=== PATIENT | male | born 1955 ===

== ENCOUNTER 2020-12-04 07:00 | Outpatient (CLI) | payer OTHER | END 2020-12-04 07:15 | disposition home or self-care (01) | LOC: PPH VACUNA 07:00 | PROVIDERS: ATTEND Emergency Medicine Pediatric Emergency Medicine | DX: Z23 Encounter for immunization (principal) ==

== ENCOUNTER 2021-05-29 08:00 | Outpatient (CLI) | payer OTHER | END 2021-05-29 08:30 | disposition home or self-care (01) | LOC: PPH VACUNA 08:00 | PROVIDERS: ATTEND Emergency Medicine Pediatric Emergency Medicine | DX: Z23 Encounter for immunization (principal) ==

== ENCOUNTER 2024-11-23 09:00 | Day surgery (SDC) | payer OTHER ==
[2024-11-20 10:38] LABS: URINE APPEARANCE Clear; URINE BILIRRUBIN Negative (NEGATIVE); URINE BLOOD Moderate; URINE COLOR Yellow; URINE GLUCOSE Negative (NEGATIVE); URINE KETONE Negative (NEGATIVE); URINE LEUKOCYTE Negative; URINE NITRATE Negative; URINE PROTEIN Trace (NEGATIVE); URINE UROBILINOGEN 0.2 E.U./dl
[2024-11-20 10:40] LABS: BASO % 0.3 % (0.1-1.2); EOS # 0.07 (0.04-0.54); EOS % 1.1 % (0.7-7.0); LYMPH # 1.65 (1.18-3.74); LYMPH % 25.7 % (19.3-53.1); MEAN PLATELET VOLUME 10.30 fl (9.4-12.4); MONO # 0.48 (0.24-0.82); MONO % 7.5 % (4.7-12.5); NEUT # 4.18 (1.56-6.13); NEUT % 65.2 % (34.0-71.1); RED CELL DISTRIBUTION WIDTH 12.6 % (11.6-14.4)
[2024-11-20 10:43] LABS: URINE BACTERIA 15.5 uL (0.0-1933); URINE EPITHELIAL CELLS 3.2 uL (0.0-38.8); URINE RBC 219.8 uL (0.0-20.8); URINE WBC 5.2 uL (0.0-23.2)
[2024-11-20 11:00] LABS: INR 1.01
[2024-11-20 11:02] LABS: ALT/SGPT 15.0 U/L (12-78); AST/SGOT 15.0 U/L (15-37); BILIRUBIN TOTAL 0.79 mg/dL (0.3-1.2); BUN CREA RATIO 17.0 (7.0-25.0); CREATININE SERUM 0.96 mg/dL (0.70-1.30); GFR 78.13; GLOBULINA 3.0 G/DL (2.4-3.5); GLUCOSE FASTING 104.0 mg/dL (65-100); OSMOLALITY SERUM 283.0 MOSM/KG (275-295)
[2024-11-20 11:06] LABS: URINE CAST 0.00 uL (0.0-1.40)
[2024-11-23] MEDS ORDERED: CEFAZOLIN SODIUM 1,000 MG VIAL ONE (14:09)
[2024-11-23] MEDS ORDERED: TYLENOL ARTHRI650 MG PO (14:52)
[2024-11-23] MEDS ORDERED: MIRALAX17 GM PO (14:52)
[2024-11-23] MEDS ORDERED: TRAMADOL HCL50 MG PO (14:52)
[2024-11-23] MEDS ORDERED: KETO10TA2 PO (14:52)
[2024-11-23] MEDS ORDERED: BUPIVACAINE HCL/MPF 0.5% 30ML VIAL ONE (14:59)
[2024-11-23] MEDS ORDERED: LIDOCAINE HCL 1%/EPINEPHRINE 20ML VIAL IJ ONE (14:59)
[2024-11-23] MEDS ORDERED: KETOROLAC TROMETHAMINE 30 MG VIAL ONE (16:02)
[2024-11-23] MEDS ORDERED: SUGAMMADEX SODIUM 200 MG/2 ML VIAL IV ONE (16:04)
== END 2024-11-23 20:15 | disposition home or self-care (01) ==
LOC: CIR.AMB 09:00
PROVIDERS: ATTEND Surgery
DX: K40.90 Unilateral inguinal hernia, without obstruction or gangrene, not specified as recurrent (principal); K42.0 Umbilical hernia with obstruction, without gangrene
CPT/HCPCS: 49650; 49592; C1781